=== PATIENT | female | born 1950 | race Caucasian/White ===

== ENCOUNTER → 2019-06-17 | Outpatient (CLI) | payer MEDICARE ==
[~2019-06-17] MED LIST: AMBIEN 10 MG TA10 MG PO; ATENOLOL 100MG100 M2 PO; AVAPRO300 MG PO; CELEXA 20 MG TA20 M1 PO; CLARITIN10 M2; COZAAR100 MG PO; LEXAPRO 10 MG T10 MG PO; OMEGA-3 FISH O1 EAC3 PO; VITAMIN C 250250 MG PO; XANAX 0.25 MG0.25 MG PO; ZOCOR 20 MG TAB20 M1 PO
== END ==
LOC: M.RAD 15:02
DX: Z78.0 Asymptomatic menopausal state (principal)

== ENCOUNTER 2019-09-09 02:19 | Emergency (ER) | payer MEDICARE ==
[~2019-09-09] VITALS: Ht 147.3 cm; Wt 85.3 kg
[2019-09-09] MEDS ORDERED: CALCIUM500 MG PO (02:33)
[2019-09-09 02:52] LABS: ABSOLUTE BASOPHILS 0.1 thou/uL (0.0-0.2); ABSOLUTE EOSINOPHILS 0.2 thou/uL (0.0-0.7); ABSOLUTE LYMPHOCYTES 2.3 thou/uL (0.8-5.3); ABSOLUTE MONOCYTES 0.9 thou/uL (0.0-1.2); ABSOLUTE NEUTROPHILS 4.3 thou/uL (1.6-8.1); BASOPHILS 0.8 %; EOSINOPHILS 2.6 %; HEMATOCRIT 43.2 % (37.0-47.0); LYMPHOCYTES 29.3 %; MCH 30.7 pg (26.0-34.0); MCHC 34.6 g/dL (28.0-37.0); MCV 88.6 fL (80.0-100.0); MONOCYTES 11.6 %; MPV 8.5 fl. (7.2-11.1); NUCLEATED RBCS 0 /100WBC; PLATELET COUNT* 201 thou/uL (150-400); POLYS 55.7 %; RBC 4.87 mil/uL (4.20-5.00); RDW-CV 13.6 % (10.5-14.5); WBC 7.8 thou/uL (4.0-11.0)
[2019-09-09 03:05] LABS: CALCIUM 8.5 mg/dL (8.5-10.1); CREATININE 1.1 mg/dL (0.6-1.3); POTASSIUM 3.6 mmol/L (3.5-5.1)
[2019-09-09 03:10] LABS: PROTIME 10.4 Seconds (9.20-11.50)
[2019-09-09 03:14] LABS: ALBUMIN 3.8 g/dL (3.4-5.0); MAGNESIUM 1.8 mg/dL (1.8-2.4); TOTAL BILIRUBIN 0.9 mg/dL (<0.1-1.0)
[2019-09-09 04:11] LABS: URINE BILIRUBIN NEGATIVE (Negative); URINE BLOOD TRACE (Negative); URINE CLARITY CLEAR; URINE COLOR YELLOW; URINE GLUCOSE-RANDOM NEGATIVE (Negative); URINE KETONES NEGATIVE (Negative); URINE LEUKOCYTES-REFLEX NEGATIVE (Negative); URINE NITRITE-REFLEX NEGATIVE (Negative); URINE PROTEIN NEGATIVE (Negative); URINE SPECIFIC GRAVITY <= 1.005 (1.005-1.030); URINE UROBILINOGEN 0.2 E.U./dl (0.2-1.0)
[2019-09-09 05:59] VITALS: BP 142/86
--- NOTE | 2019-09-09 12:49 | EKG ---
[place] [address] ELECTROCARDIOGRAM REPORT Name: NE MOBLEY Room: [facility]#: [id number] Admission: 09/09/19 Attend Phys: Discharge: 09/09/19 Date of : 48 Date of Service: 09/09/19 0223 Report #: [id number] THIS REPORT FOR: //name// [facility] ED Test Date: 2019-09-09 Test Time: 02:23:29 Pat Name: NE MOBLEY Department: Room: Gender: F Judicial Reporter: LORAINE : 1950 Requested By: Sada Morrell Order Number: [id number] MD: Shabbir Duran Measurements Intervals [place] Rate: 55 P: 18 SC: 189 QRS: 1 QRSD: 96 T: 29 QT: 477 QTc: 457 Interpretive Statements Sinus rhythm Probable left ventricular hypertrophy Baseline wander in lead(s) V6 Compared to ECG 01/28/2011 06:01:19 rate increased Electronically Signed On 09-09-2019 12:48:00 CDT by Shabbir Duran [email or web address] <ELECTRONICALLY SIGNED> By: Shabbir Duran MD, [facility] 09/09/19 1248 0223 Shabbir Duran MD, [facility] /EPI
== END 2019-09-09 06:02 | disposition home or self-care (01) ==
LOC: M.ERS 02:19
PROVIDERS: Emergency Medicine
DX: R07.89 Other chest pain (principal); I10 Essential (primary) hypertension; E78.00 Pure hypercholesterolemia, unspecified; Z90.12 Acquired absence of left breast and nipple; Z96.642 Presence of left artificial hip joint; Z98.51 Tubal ligation status; Z85.41 Personal history of malignant neoplasm of cervix uteri; Z91.018 Allergy to other foods; Z88.1 Allergy status to other antibiotic agents; Z88.6 Allergy status to analgesic agent; Z88.8 Allergy status to other drugs, medicaments and biological substances